=== PATIENT | male | born 1985 | race Two or more races ===

== ENCOUNTER 2017-03-04 12:23 | Inpatient (IN) | payer OTHER ==
[2017-03-04 12:32] VITALS: BMI 26.6
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
[2017-03-04 13:23] LABS: BASOPHILS # (AUTO) 0.1 X10^3/uL (0.0-0.1); BASOPHILS % (AUTO) 0.5 % (0.2-1.0); EOSINOPHILS # (AUTO) 0.3 x10^3/uL (0.0-0.2); EOSINOPHILS % (AUTO) 1.5 % (0.9-2.9); HEMATOCRIT 45.7 % (42.0-54.0); HEMOGLOBIN 15.5 g/dL (13.5-18.0); LYMPHOCYTES # (AUTO) 1.1 X10^3/uL (1.3-2.9); LYMPHOCYTES % (AUTO) 6.6 % (21.0-51.0); MEAN CORPUSCULAR HEMOGLOBIN 27.6 pg (27.0-34.0); MEAN CORPUSCULAR VOLUME 81.3 fL (80.0-100.0); MEAN PLATELET VOLUME 8.7 fL (7.4-11.0); MONOCYTES # (AUTO) 1.2 x10^3/uL (0.3-0.8); MONOCYTES % (AUTO) 7.3 % (0.0-13.0); NEUTROPHILS # (AUTO) 14.3 x10^3/uL (2.2-4.8); NEUTROPHILS % (AUTO) 84.1 % (42.0-75.0); PLATELET COUNT 201 X10^3/uL (150.0-450.0); RED BLOOD COUNT 5.62 X10^6/uL (4.7-6.0); WHITE BLOOD COUNT 17.1 X10^3/uL (3.6-10.0)
--- NOTE | 2017-03-04 13:41 | RAD ---
HISTORY: Pain trauma, infection. Study: Two views of the left knee. (Labeled as right by the tech, but history says left knee) Comparison: None. Findings: No evidence for acute cortical disruption or dislocation. Mild patellofemoral spurring. Bipartite l ateral patella. No significant effusion. IMPRESSION: No acute osseous abnormality. Reported By:
[2017-03-04] MEDS ORDERED: TORADOL 30 MG VIAL ONE (14:40)
[2017-03-04] MEDS ORDERED: TORADOL 15 MG VIAL IVP ONE (14:59)
[2017-03-04] MEDS ORDERED: VANCOMYCIN 1 GM PREMIX (ADDVANTAGE) 250 ML IV SCH ×2 (15:00→21:00)
[2017-03-04] MEDS ORDERED: VANCOMYCIN 1 GM PREMIX (ADDVANTAGE) 250 ML IV ONE (15:08)
[2017-03-04] MEDS ORDERED: MOTRIN TAB 600 MG PO PRN (15:11)
[2017-03-04] MEDS ORDERED: PHENERGAN TAB 25 MG PO PRN (15:11)
[2017-03-04] MEDS ORDERED: SOLU-Medrol 125 MG VIAL ONE (15:49)
[2017-03-04] MEDS ORDERED: BENADRYL INJ 50 MG VIAL ONE (15:49)
[2017-03-04] MEDS ORDERED: SOLU-Medrol 125 MG VIAL IVP ONE (15:58)
[2017-03-04] MEDS ORDERED: BENADRYL INJ 50 MG VIAL IVP ONE (15:58)
[2017-03-04] MEDS: NS 1000 ML 1,000 ML IV SCH ×2 (15:59→18:40)
[2017-03-05] MEDS: NS 1000 ML 1,000 ML IV SCH ×4 (01:00→22:24)
[2017-03-05] MEDS: TORADOL 30 MG VIAL IVP PRN ×2 (02:08→21:00)
[2017-03-05 05:29] LABS: BASOPHILS % (AUTO) 0 % (0.2-1.0); HEMATOCRIT 38.3 % (42.0-54.0); HEMOGLOBIN 13.1 g/dL (13.5-18.0); LYMPHOCYTES # (AUTO) 0.7 X10^3/uL (1.3-2.9); LYMPHOCYTES % (AUTO) 3.3 % (21.0-51.0); MEAN CORPUSCULAR HEMOGLOBIN 27.3 pg (27.0-34.0); MEAN CORPUSCULAR HGB CONC 34.1 g/dL (33.0-35.0); MEAN CORPUSCULAR VOLUME 80.1 fL (80.0-100.0); MEAN PLATELET VOLUME 9.1 fL (7.4-11.0); MONOCYTES # (AUTO) 0.6 x10^3/uL (0.3-0.8); MONOCYTES % (AUTO) 2.8 % (0.0-13.0); NEUTROPHILS # (AUTO) 18.9 x10^3/uL (2.2-4.8); NEUTROPHILS % (AUTO) 93.9 % (42.0-75.0); PLATELET COUNT 204 X10^3/uL (150.0-450.0); RED BLOOD COUNT 4.78 X10^6/uL (4.7-6.0); RED CELL DISTRIBUTION WIDTH 13.9 % (11.6-16.5)
[2017-03-05 05:31] LABS: WHITE BLOOD COUNT 20.1 X10^3/uL (3.6-10.0)
[2017-03-05 05:33] LABS: ALANINE AMINOTRANSFERASE 101 Units/L (12-78); ALKALINE PHOSPHATASE 154 Units/L (46-116); ASPARTATE AMINO TRANSFERASE 57 Units/L (15-37); BLOOD UREA NITROGEN 17 mg/dL (7-18); CALCIUM 8.6 mg/dL (8.5-10.1); CARBON DIOXIDE 24.2 mmol/L (21-32); CHLORIDE 105 mmol/L (98-107); COR CA(FOR HYPOALB) 9.4 mg/dL (8.5-10.1); COR NA(FOR HYPERGLY) 142 mmol/L (136-145); CREATININE 1.12 mg/dL (0.70-1.30); GLUCOSE 205 mg/dL (65-99); SODIUM 139 mmol/L (136-145); TOTAL PROTEIN 7.5 g/dL (6.4-8.2); eGFR BLACK RACES > 60 (>60); eGFR NON BLACK RACES > 60 (>60)
[2017-03-05 06:10] LABS: BAND NEUTROPHILS % 13 % (0-10); PLATELET MORPHOLOGY COMMENT NORMAL (NORMAL)
[2017-03-05] MEDS: TEFLARO 600 MG in NS 50 ML IV + SPIKE MINIBAG* 50 ML IV SCH ×2 (09:13→20:58)
[2017-03-05] MEDS: NORCO 5/325 MG TAB PO PRN (12:50)
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
--- NOTE | 2017-03-05 13:37 | PCM.PROG ---
Progress Note - Progress Note for Day of Date: 03/05/17 - Subjective Subjective: LEFT KNEE REDNESS, PAIN AND STIFFNESS. ADD BACTRIM PO, PT ON TEFLERO. CT KNEE JOINT - Past Medical Family Social History Past Med/Fam/Surg Hx: No changes since H&P Allergies: Allergies vancomycin Allergy (Verified 03/04/17 16:06) WHELPS TO FACE , REDNESS TO NECK AND FACE.. - Review of Systems ROS: No change since H&P - Vital Signs and I&O's Vital Signs: Temperature 98.2 F Pulse Rate [Left Brachial] 83 Respiratory Rate 20 Blood Pressure [Right Arm] 108/60 Blood Pressure [Left Arm] 116/59 O2 Sat by Pulse Oximetry 98 Intake and Output: Intake & Output 03/03/17 03/04/17 03/05/17 03/06/17 11:59 11:59 11:59 11:59 Intake Total 1140 Balance 1140 - Physical Exam Oriented: Normal Eyes: Normal Ear: Normal Nose: Normal Throat: Normal Cardiovascular: Normal : Normal Auscultation: Bowel Sounds: Normal Tenderness: Normal Skin: Red, Tender, Hot Musculoskeletal: Knee (LEFT KNEE, INCREASED REDNESS, FEVERED AND TENDERNESS) Mood Description: Calm Speech Pattern: Clear, Appropriate - Laboratory and Diagnostics Result Diagrams: 03/05/17 04:20 03/05/17 04:20 Labs: Laboratory WBC 20.1 X10^3/uL (3.6-10.0) H* 03/05/17 04:20 RBC 4.78 X10^6/uL (4.7-6.0) 03/05/17 04:20 Hgb 13.1 g/dL (13.5-18.0) L 03/05/17 04:20 Hct 38.3 % (42.0-54.0) L 03/05/17 04:20 MCV 80.1 fL (80.0-100.0) 03/05/17 04:20 MCH 27.3 pg (27.0-34.0) 03/05/17 04:20 MCHC 34.1 g/dL (33.0-35.0) 03/05/17 04:20 RDW 13.9 % (11.6-16.5) 03/05/17 04:20 Plt Count 204 X10^3/uL (150.0-450.0) 03/05/17 04:20 Plt Count Comment Adequate (ADEQUATE) 03/05/17 04:20 MPV 9.1 fL (7.4-11.0) 03/05/17 04:20 Neut % 93.9 % (42.0-75.0) H 03/05/17 04:20 Lymph % 3.3 % (21.0-51.0) L 03/05/17 04:20 [place] % 2.8 % (0.0-13.0) 03/05/17 04:20 Eos % 0.0 % (0.9-2.9) L 03/05/17 04:20 Baso % 0 % (0.2-1.0) L 03/05/17 04:20 Neut # 18.9 x10^3/uL (2.2-4.8) H 03/05/17 04:20 Lymph # 0.7 X10^3/uL (1.3-2.9) L 03/05/17 04:20 [place] # 0.6 x10^3/uL (0.3-0.8) 03/05/17 04:20 Eos # 0.0 x10^3/uL (0.0-0.2) 03/05/17 04:20 Baso # 0.0 X10^3/uL (0.0-0.1) 03/05/17 04:20 Absolute Nucleated RBC 0.0 /100WBC 03/05/17 04:20 Total Counted 100 03/05/17 04:20 Neutrophils % (Manual) 82 % (39-76) H 03/05/17 04:20 Band Neutrophils % 13 % (0-10) H 03/05/17 04:20 Lymphocytes % (Manual) 3 % (13-43) L 03/05/17 04:20 Monocytes % (Manual) 2 % (4-9) L 03/05/17 04:20 Plt Morphology Comment Normal (NORMAL) 03/05/17 04:20 RBC Morphology Normal (NORMAL) 03/05/17 04:20 Sodium 139 mmol/L (136-145) 03/05/17 04:20 Corrected Sodium 142 mmol/L (136-145) 03/05/17 04:20 Potassium 3.9 mmol/L (3.5-5.1) 03/05/17 04:20 Chloride 105 mmol/L (98-107) 03/05/17 04:20 Carbon Dioxide 24.2 mmol/L (21-32) 03/05/17 04:20 BUN 17 mg/dL (7-18) 03/05/17 04:20 Creatinine 1.12 mg/dL (0.70-1.30) 03/05/17 04:20 Est GFR (MDRD) Af Amer > 60 (>60) 03/05/17 04:20 Est GFR (MDRD) Non-Af > 60 (>60) 03/05/17 04:20 Glucose 205 mg/dL (65-99) H 03/05/17 04:20 Calcium 8.6 mg/dL (8.5-10.1) 03/05/17 04:20 Corrected Calcium 9.4 mg/dL (8.5-10.1) 03/05/17 04:20 Total Bilirubin 0.40 mg/dL (0.2-1.0) 03/05/17 04:20 AST 57 Units/L (15-37) H 03/05/17 04:20 ALT 101 Units/L (12-78) H 03/05/17 04:20 Alkaline Phosphatase 154 Units/L (46-116) H 03/05/17 04:20 C-Reactive Protein 236.80 mg/L (0-3.0) H 03/04/17 13:10 Total Protein 7.5 g/dL (6.4-8.2) 03/05/17 04:20 Albumin 3.0 g/dL (3.4-5.0) L 03/05/17 04:20 Globulin 4.5 g/dL (2.5-4.5) 03/05/17 04:20 Albumin/Globulin Ratio 0.7 Ratio (1.1-2.1) L 03/05/17 04:20 Non-DOT Drug Screen Collected 03/04/17 17:13 - Plan (1) Abrasion, left knee, initial encounter Status: Acute Qualifiers: Encounter type: E Plan: ADD BACTRIM PO, PT ON TEFLERO. CT KNEE JOINT (2) Effusion, left knee Status: Acute (3) Cellulitis of left lower extremity without foot Status: Acute
[2017-03-05] MEDS: BACTRIM DS TAB PO SCH ×2 (14:40→21:00)
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
[2017-03-06 05:21] LABS: ALANINE AMINOTRANSFERASE 112 Units/L (12-78); ALBUMIN 2.6 g/dL (3.4-5.0); ALKALINE PHOSPHATASE 135 Units/L (46-116); ASPARTATE AMINO TRANSFERASE 49 Units/L (15-37); BLOOD UREA NITROGEN 11 mg/dL (7-18); CALCIUM 8.3 mg/dL (8.5-10.1); CARBON DIOXIDE 24.1 mmol/L (21-32); CHLORIDE 107 mmol/L (98-107); COR CA(FOR HYPOALB) 9.4 mg/dL (8.5-10.1); CREATININE 0.96 mg/dL (0.70-1.30); GLUCOSE 104 mg/dL (65-99); SODIUM 141 mmol/L (136-145); TOTAL PROTEIN 6.9 g/dL (6.4-8.2); eGFR BLACK RACES > 60 (>60); eGFR NON BLACK RACES > 60 (>60)
[2017-03-06] MEDS: NORCO 5/325 MG TAB PO PRN ×2 (05:32→10:52)
[2017-03-06 05:41] LABS: BASOPHILS % (AUTO) 0.1 % (0.2-1.0); EOSINOPHILS # (AUTO) 0.2 x10^3/uL (0.0-0.2); EOSINOPHILS % (AUTO) 0.8 % (0.9-2.9); HEMATOCRIT 38.4 % (42.0-54.0); HEMOGLOBIN 12.9 g/dL (13.5-18.0); LYMPHOCYTES # (AUTO) 1.6 X10^3/uL (1.3-2.9); LYMPHOCYTES % (AUTO) 8.2 % (21.0-51.0); MEAN CORPUSCULAR HEMOGLOBIN 27.3 pg (27.0-34.0); MEAN CORPUSCULAR HGB CONC 33.5 g/dL (33.0-35.0); MEAN CORPUSCULAR VOLUME 81.5 fL (80.0-100.0); MEAN PLATELET VOLUME 8.9 fL (7.4-11.0); MONOCYTES # (AUTO) 1.3 x10^3/uL (0.3-0.8); MONOCYTES % (AUTO) 6.9 % (0.0-13.0); NEUTROPHILS # (AUTO) 15.8 x10^3/uL (2.2-4.8); PLATELET COUNT 214 X10^3/uL (150.0-450.0); RED BLOOD COUNT 4.71 X10^6/uL (4.7-6.0); RED CELL DISTRIBUTION WIDTH 14.5 % (11.6-16.5); WHITE BLOOD COUNT 18.8 X10^3/uL (3.6-10.0)
[2017-03-06] MEDS: TEFLARO 600 MG in NS 50 ML IV + SPIKE MINIBAG* 50 ML IV SCH ×2 (09:25→20:33)
[2017-03-06] MEDS: BACTRIM DS TAB PO SCH ×2 (09:26→20:33)
[2017-03-06] MEDS: NS 1000 ML 1,000 ML IV SCH ×3 (09:36→23:21)
--- NOTE | 2017-03-06 13:28 | MRI ---
Left knee MRI without contrast. 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 Marrow signal otherwise appears normal. No acute fracture or mal alignment is identified. Specifically, no marrow or periosteal edema of the patella is appreciated. Again seen is marked prepatellar soft tissue swelling with mild associated thickening of the overlyi ng skin. Moderate circumferential subcutaneous edema about the knee is also present. No discrete, dr ainable fluid collection is identified. The articular cartilage of the femorotibial and patellofemoral compartments appears well maintained without significant chondromalacia or full-thickness cartilage defect. A small joint effusion is pre sent. No definite loose intra-articular bodies are identified. No Bakers cyst is seen. The menisci, cruciate ligaments, superficial MCL, major lateral stabilizers of the knee and extensor mechanism appear intact. The myotendinous structures about the knee and neurovascular bundle are un remarkable. Impression: Stable marked prepatellar soft tissue swelling, again likely reflecting contusion given patient hist ory of recent trauma. Moderate circumferential subcutaneous edema about the knee, nonspecific. Superimposed infection, suc h as cellulitis is difficult to exclude and clinical correlation is again advised. Otherwise, no MR evidence of acute fracture or internal derangement The Reported By:
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
--- NOTE | 2017-03-06 18:46 | PCM.PROG ---
Progress Note - Progress Note for Day of Date: 03/06/17 - Subjective Subjective: PATIENT IS A 32 MALE WHO WAS ADMITTED 3 DAYS AGO WITH CELLULITIS TO THEleft knee. PATIENT HAS BEEN ON IV TEFLERO FOR CELLULITIS, WHITE BLOOD COUNT IMPROVED TO 18.8 THIS A.M. crp IMPROVED TO 193.3. pATIENT CONTINUES WITH PAIN AND SWELLING TO THE LEFT AND A, IMPAIRED GAIT AND WEIGHTBEARING. pAIN MEDICATION HAS BEEN CONTROLLING PAIN PER PATIENT. wE'LL CONSULT dR. [employer], CULTURE SENSITIVITY ON CHART, mrsa SENSITIVE TO bACTRIM DISCUSSED POSSIBLE DISCHARGE ON friday IF PATIENT CONTINUES TO IMPROVE - Past Medical Family Social History Past Med/Fam/Surg Hx: No changes since H&P Allergies: Allergies vancomycin Allergy (Verified 03/04/17 16:06) WHELPS TO FACE , REDNESS TO NECK AND FACE.. - Review of Systems ROS: No change since H&P - Vital Signs and I&O's Vital Signs: Temperature 98.7 F Pulse Rate [Right Brachial] 86 Pulse Rate [Left Brachial] 83 Respiratory Rate 20 Blood Pressure [Right Arm] 127/70 Blood Pressure [Left Arm] 123/79 O2 Sat by Pulse Oximetry 97 Intake and Output: Intake & Output 03/04/17 03/05/17 03/06/17 03/07/17 11:59 11:59 11:59 11:59 Intake Total 1140 1338 840 Balance 1140 1338 840 - Physical Exam Oriented: Normal Eyes: Normal Ear: Normal Nose: Normal Throat: Normal Respiratory: Normal Cardiovascular: Normal : Normal Auscultation: Bowel Sounds: Normal Tenderness: Normal Skin: Red, Tender, Hot Musculoskeletal: Left, Knee, Swelling, Tender Mood Description: Calm Speech Pattern: Clear, Appropriate - Laboratory and Diagnostics Result Diagrams: 03/06/17 04:25 03/06/17 04:25 Labs: Laboratory WBC 18.8 X10^3/uL (3.6-10.0) H 03/06/17 04:25 RBC 4.71 X10^6/uL (4.7-6.0) 03/06/17 04:25 Hgb 12.9 g/dL (13.5-18.0) L 03/06/17 04:25 Hct 38.4 % (42.0-54.0) L 03/06/17 04:25 MCV 81.5 fL (80.0-100.0) 03/06/17 04:25 MCH 27.3 pg (27.0-34.0) 03/06/17 04:25 MCHC 33.5 g/dL (33.0-35.0) 03/06/17 04:25 RDW 14.5 % (11.6-16.5) 03/06/17 04:25 Plt Count 214 X10^3/uL (150.0-450.0) 03/06/17 04:25 Plt Count Comment Adequate (ADEQUATE) 03/05/17 04:20 MPV 8.9 fL (7.4-11.0) 03/06/17 04:25 Neut % 84.0 % (42.0-75.0) H 03/06/17 04:25 Lymph % 8.2 % (21.0-51.0) L 03/06/17 04:25 [place] % 6.9 % (0.0-13.0) 03/06/17 04:25 Eos % 0.8 % (0.9-2.9) L 03/06/17 04:25 Baso % 0.1 % (0.2-1.0) L 03/06/17 04:25 Neut # 15.8 x10^3/uL (2.2-4.8) H 03/06/17 04:25 Lymph # 1.6 X10^3/uL (1.3-2.9) 03/06/17 04:25 [place] # 1.3 x10^3/uL (0.3-0.8) H 03/06/17 04:25 Eos # 0.2 x10^3/uL (0.0-0.2) 03/06/17 04:25 Baso # 0.0 X10^3/uL (0.0-0.1) 03/06/17 04:25 Absolute Nucleated RBC 0.0 /100WBC 03/06/17 04:25 Total Counted 100 03/05/17 04:20 Neutrophils % (Manual) 82 % (39-76) H 03/05/17 04:20 Band Neutrophils % 13 % (0-10) H 03/05/17 04:20 Lymphocytes % (Manual) 3 % (13-43) L 03/05/17 04:20 Monocytes % (Manual) 2 % (4-9) L 03/05/17 04:20 Plt Morphology Comment Normal (NORMAL) 03/05/17 04:20 RBC Morphology Normal (NORMAL) 03/05/17 04:20 Sodium 141 mmol/L (136-145) 03/06/17 04:25 Corrected Sodium TNP 03/06/17 04:25 Potassium 3.9 mmol/L (3.5-5.1) 03/06/17 04:25 Chloride 107 mmol/L (98-107) 03/06/17 04:25 Carbon Dioxide 24.1 mmol/L (21-32) 03/06/17 04:25 BUN 11 mg/dL (7-18) 03/06/17 04:25 Creatinine 0.96 mg/dL (0.70-1.30) 03/06/17 04:25 Est GFR (MDRD) Af Amer > 60 (>60) 03/06/17 04:25 Est GFR (MDRD) Non-Af > 60 (>60) 03/06/17 04:25 Glucose 104 mg/dL (65-99) H 03/06/17 04:25 Calcium 8.3 mg/dL (8.5-10.1) L 03/06/17 04:25 Corrected Calcium 9.4 mg/dL (8.5-10.1) 03/06/17 04:25 Total Bilirubin 0.20 mg/dL (0.2-1.0) 03/06/17 04:25 AST 49 Units/L (15-37) H 03/06/17 04:25 ALT 112 Units/L (12-78) H 03/06/17 04:25 Alkaline Phosphatase 135 Units/L (46-116) H 03/06/17 04:25 C-Reactive Protein 103.30 mg/L (0-3.0) H 03/06/17 04:25 Total Protein 6.9 g/dL (6.4-8.2) 03/06/17 04:25 Albumin 2.6 g/dL (3.4-5.0) L 03/06/17 04:25 Globulin 4.3 g/dL (2.5-4.5) 03/06/17 04:25 Albumin/Globulin Ratio 0.6 Ratio (1.1-2.1) L 03/06/17 04:25 Non-DOT Drug Screen Collected 03/04/17 17:13 - Plan (1) Cellulitis of left lower extremity without foot Status: Acute Plan: wILL REPEAT A.M. cbc, cmp, crp. WE'LL CONTINUE iv ANTIBIOTICS, BY MOUTH bACTRIM. wOUND CARE AND PAIN CONTROL (2) Abrasion, left knee, initial encounter Status: Acute Qualifiers: Encounter type: E Plan: BACTRIM PO, PT ON TEFLERO. MRI LEFT KNEE PER ORTHO (3) Effusion, left knee Status: Acute
[2017-03-06] MEDS: TORADOL 30 MG VIAL IVP PRN (20:33)
[2017-03-07] MEDS: NORCO 5/325 MG TAB PO PRN ×2 (05:31→22:25)
[2017-03-07 06:19] LABS: BASOPHILS # (AUTO) 0.1 X10^3/uL (0.0-0.1); BASOPHILS % (AUTO) 0.4 % (0.2-1.0); EOSINOPHILS # (AUTO) 0.3 x10^3/uL (0.0-0.2); EOSINOPHILS % (AUTO) 2.6 % (0.9-2.9); HEMATOCRIT 40.3 % (42.0-54.0); HEMOGLOBIN 13.8 g/dL (13.5-18.0); LYMPHOCYTES # (AUTO) 1.8 X10^3/uL (1.3-2.9); LYMPHOCYTES % (AUTO) 13.4 % (21.0-51.0); MEAN CORPUSCULAR HEMOGLOBIN 27.4 pg (27.0-34.0); MEAN CORPUSCULAR HGB CONC 34.2 g/dL (33.0-35.0); MEAN CORPUSCULAR VOLUME 80.1 fL (80.0-100.0); MEAN PLATELET VOLUME 8.9 fL (7.4-11.0); MONOCYTES # (AUTO) 1.4 x10^3/uL (0.3-0.8); MONOCYTES % (AUTO) 10.4 % (0.0-13.0); NEUTROPHILS # (AUTO) 9.6 x10^3/uL (2.2-4.8); NEUTROPHILS % (AUTO) 73.2 % (42.0-75.0); PLATELET COUNT 257 X10^3/uL (150.0-450.0); RED BLOOD COUNT 5.03 X10^6/uL (4.7-6.0); RED CELL DISTRIBUTION WIDTH 14.5 % (11.6-16.5); WHITE BLOOD COUNT 13.1 X10^3/uL (3.6-10.0)
[2017-03-07 06:29] LABS: ALANINE AMINOTRANSFERASE 184 Units/L (12-78); ALBUMIN 2.7 g/dL (3.4-5.0); ALKALINE PHOSPHATASE 202 Units/L (46-116); ASPARTATE AMINO TRANSFERASE 78 Units/L (15-37); BLOOD UREA NITROGEN 12 mg/dL (7-18); CALCIUM 8.4 mg/dL (8.5-10.1); CARBON DIOXIDE 25.7 mmol/L (21-32); CHLORIDE 102 mmol/L (98-107); COR CA(FOR HYPOALB) 9.4 mg/dL (8.5-10.1); CREATININE 0.99 mg/dL (0.70-1.30); GLUCOSE 98 mg/dL (65-99); SODIUM 137 mmol/L (136-145); TOTAL PROTEIN 7.2 g/dL (6.4-8.2); eGFR BLACK RACES > 60 (>60); eGFR NON BLACK RACES > 60 (>60)
[2017-03-07] MEDS: TEFLARO 600 MG in NS 50 ML IV + SPIKE MINIBAG* 50 ML IV SCH ×2 (09:09→22:24)
[2017-03-07] MEDS: BACTRIM DS TAB PO SCH ×2 (09:09→22:25)
[2017-03-07] MEDS: NS 1000 ML 1,000 ML IV SCH ×5 (09:14→23:02)
[2017-03-07] MEDS: CLEOCIN 300 MG IV PREMIX 300 MG/50 ML BAG IV SCH ×3 (09:14→22:25)
--- NOTE | 2017-03-07 14:34 | PCM.PROG ---
Progress Note - Progress Note for Day of Date: 03/07/17 - Subjective Subjective: PATIENT IS A 32 MALE WHO WAS ADMITTED 03/04 WITH CELLULITIS TO THEleft knee. PATIENT HAS BEEN ON IV TEFLERO and bactrim for MRSA cellulitis. Patient was evaluated by orthopedic, MRI without signs of osteomyelitis. This morning redness has extended to the thigh however patient does report pain controlled. Will add IV clindamycin and repeat a.m. labs - Past Medical Family Social History Past Med/Fam/Surg Hx: No changes since H&P Allergies: Allergies vancomycin Allergy (Verified 03/04/17 16:06) WHELPS TO FACE , REDNESS TO NECK AND FACE.. - Review of Systems ROS: No change since H&P - Vital Signs and I&O's Vital Signs: Temperature 98.0 F Pulse Rate [Right Brachial] 73 Pulse Rate [Left Brachial] 74 Respiratory Rate 20 Blood Pressure [Right Arm] 115/64 Blood Pressure [Left Arm] 111/60 O2 Sat by Pulse Oximetry 96 Intake and Output: Intake & Output 03/05/17 03/06/17 03/07/17 03/08/17 11:59 11:59 11:59 11:59 Intake Total 1140 1338 1320 480 Balance 1140 1338 1320 480 - Physical Exam Oriented: Normal Eyes: Normal Ear: Normal Nose: Normal Throat: Normal Respiratory: Normal Cardiovascular: Normal : Normal Auscultation: Bowel Sounds: Normal Tenderness: Normal Skin: Red, Tender, Hot Musculoskeletal: Left, Thigh, Knee, Swelling, Tender Mood Description: Calm Speech Pattern: Clear, Appropriate - Laboratory and Diagnostics Result Diagrams: 03/07/17 04:00 03/07/17 04:00 Labs: Laboratory WBC 13.1 X10^3/uL (3.6-10.0) H 03/07/17 04:00 RBC 5.03 X10^6/uL (4.7-6.0) 03/07/17 04:00 Hgb 13.8 g/dL (13.5-18.0) 03/07/17 04:00 Hct 40.3 % (42.0-54.0) L 03/07/17 04:00 MCV 80.1 fL (80.0-100.0) 03/07/17 04:00 MCH 27.4 pg (27.0-34.0) 03/07/17 04:00 MCHC 34.2 g/dL (33.0-35.0) 03/07/17 04:00 RDW 14.5 % (11.6-16.5) 03/07/17 04:00 Plt Count 257 X10^3/uL (150.0-450.0) 03/07/17 04:00 Plt Count Comment Adequate (ADEQUATE) 03/05/17 04:20 MPV 8.9 fL (7.4-11.0) 03/07/17 04:00 Neut % 73.2 % (42.0-75.0) 03/07/17 04:00 Lymph % 13.4 % (21.0-51.0) L 03/07/17 04:00 [place] % 10.4 % (0.0-13.0) 03/07/17 04:00 Eos % 2.6 % (0.9-2.9) 03/07/17 04:00 Baso % 0.4 % (0.2-1.0) 03/07/17 04:00 Neut # 9.6 x10^3/uL (2.2-4.8) H 03/07/17 04:00 Lymph # 1.8 X10^3/uL (1.3-2.9) 03/07/17 04:00 [place] # 1.4 x10^3/uL (0.3-0.8) H 03/07/17 04:00 Eos # 0.3 x10^3/uL (0.0-0.2) H 03/07/17 04:00 Baso # 0.1 X10^3/uL (0.0-0.1) 03/07/17 04:00 Absolute Nucleated RBC 0.1 /100WBC 03/07/17 04:00 Total Counted 100 03/05/17 04:20 Neutrophils % (Manual) 82 % (39-76) H 03/05/17 04:20 Band Neutrophils % 13 % (0-10) H 03/05/17 04:20 Lymphocytes % (Manual) 3 % (13-43) L 03/05/17 04:20 Monocytes % (Manual) 2 % (4-9) L 03/05/17 04:20 Plt Morphology Comment Normal (NORMAL) 03/05/17 04:20 RBC Morphology Normal (NORMAL) 03/05/17 04:20 Sodium 137 mmol/L (136-145) 03/07/17 04:00 Corrected Sodium TNP 03/07/17 04:00 Potassium 3.8 mmol/L (3.5-5.1) 03/07/17 04:00 Chloride 102 mmol/L (98-107) 03/07/17 04:00 Carbon Dioxide 25.7 mmol/L (21-32) 03/07/17 04:00 BUN 12 mg/dL (7-18) 03/07/17 04:00 Creatinine 0.99 mg/dL (0.70-1.30) 03/07/17 04:00 Est GFR (MDRD) Af Amer > 60 (>60) 03/07/17 04:00 Est GFR (MDRD) Non-Af > 60 (>60) 03/07/17 04:00 Glucose 98 mg/dL (65-99) 03/07/17 04:00 Calcium 8.4 mg/dL (8.5-10.1) L 03/07/17 04:00 Corrected Calcium 9.4 mg/dL (8.5-10.1) 03/07/17 04:00 Total Bilirubin 0.30 mg/dL (0.2-1.0) 03/07/17 04:00 AST 78 Units/L (15-37) H 03/07/17 04:00 ALT 184 Units/L (12-78) H 03/07/17 04:00 Alkaline Phosphatase 202 Units/L (46-116) H 03/07/17 04:00 C-Reactive Protein 89.90 mg/L (0-3.0) H 03/07/17 04:00 C-React Prot High Sens Cancelled 03/07/17 04:00 Total Protein 7.2 g/dL (6.4-8.2) 03/07/17 04:00 Albumin 2.7 g/dL (3.4-5.0) L 03/07/17 04:00 Globulin 4.5 g/dL (2.5-4.5) 03/07/17 04:00 Albumin/Globulin Ratio 0.6 Ratio (1.1-2.1) L 03/07/17 04:00 Non-DOT Drug Screen Collected 03/04/17 17:13 - Plan (1) Cellulitis of left lower extremity without foot Status: Acute Plan: wILL REPEAT A.M. cbc, cmp, crp. WE'LL CONTINUE iv ANTIBIOTICS, BY MOUTH bACTRIM. wOUND CARE AND PAIN CONTROL (2) Abrasion, left knee, initial encounter Status: Acute Qualifiers: Encounter type: E Plan: BACTRIM PO, PT ON TEFLERO, ADD CLINDAMYCIN iv TODAY AND REPEAT A.M. LABS. MRI LEFT KNEE PER ORTHO WITHOUT FINDINGS FOR OSTEOMYELITIS (3) Effusion, left knee Status: Acute
[2017-03-07] MEDS: TORADOL 30 MG VIAL IVP PRN (15:22)
[2017-03-08 05:32] LABS: BASOPHILS # (AUTO) 0.1 X10^3/uL (0.0-0.1); BASOPHILS % (AUTO) 0.5 % (0.2-1.0); EOSINOPHILS # (AUTO) 0.6 x10^3/uL (0.0-0.2); EOSINOPHILS % (AUTO) 4.8 % (0.9-2.9); HEMATOCRIT 41.1 % (42.0-54.0); HEMOGLOBIN 13.9 g/dL (13.5-18.0); LYMPHOCYTES % (AUTO) 17.5 % (21.0-51.0); MEAN CORPUSCULAR HEMOGLOBIN 27.2 pg (27.0-34.0); MEAN CORPUSCULAR HGB CONC 33.9 g/dL (33.0-35.0); MEAN CORPUSCULAR VOLUME 80.5 fL (80.0-100.0); MEAN PLATELET VOLUME 8.4 fL (7.4-11.0); MONOCYTES % (AUTO) 8.7 % (0.0-13.0); NEUTROPHILS # (AUTO) 7.9 x10^3/uL (2.2-4.8); NEUTROPHILS % (AUTO) 68.5 % (42.0-75.0); PLATELET COUNT 283 X10^3/uL (150.0-450.0); RED BLOOD COUNT 5.11 X10^6/uL (4.7-6.0); RED CELL DISTRIBUTION WIDTH 14.2 % (11.6-16.5); WHITE BLOOD COUNT 11.6 X10^3/uL (3.6-10.0)
[2017-03-08 05:33] LABS: ALANINE AMINOTRANSFERASE 175 Units/L (12-78); ALBUMIN 2.9 g/dL (3.4-5.0); ALKALINE PHOSPHATASE 244 Units/L (46-116); ASPARTATE AMINO TRANSFERASE 58 Units/L (15-37); BLOOD UREA NITROGEN 11 mg/dL (7-18); CALCIUM 9.1 mg/dL (8.5-10.1); CARBON DIOXIDE 29.1 mmol/L (21-32); CHLORIDE 101 mmol/L (98-107); CREATININE 1.14 mg/dL (0.70-1.30); GLUCOSE 95 mg/dL (65-99); SODIUM 137 mmol/L (136-145); TOTAL PROTEIN 7.9 g/dL (6.4-8.2); eGFR BLACK RACES > 60 (>60); eGFR NON BLACK RACES > 60 (>60)
[2017-03-08] MEDS: CLEOCIN 300 MG IV PREMIX 300 MG/50 ML BAG IV SCH ×3 (06:14→22:05)
[2017-03-08] MEDS: TORADOL 30 MG VIAL IVP PRN (06:15)
[2017-03-08] MEDS: NS 1000 ML 1,000 ML IV SCH ×3 (07:42→18:46)
[2017-03-08] MEDS: TEFLARO 600 MG in NS 50 ML IV + SPIKE MINIBAG* 50 ML IV SCH ×2 (09:01→21:20)
[2017-03-08] MEDS: BACTRIM DS TAB PO SCH ×2 (09:02→21:18)
[2017-03-08] MEDS: NORCO 5/325 MG TAB PO PRN (22:11)
[2017-03-09] MEDS: NS 1000 ML 1,000 ML IV SCH ×3 (01:50→20:33)
[2017-03-09] MEDS: CLEOCIN 300 MG IV PREMIX 300 MG/50 ML BAG IV SCH ×2 (05:39→13:14)
[2017-03-09 06:14] LABS: BASOPHILS # (AUTO) 0.1 X10^3/uL (0.0-0.1); BASOPHILS % (AUTO) 0.5 % (0.2-1.0); EOSINOPHILS # (AUTO) 0.7 x10^3/uL (0.0-0.2); EOSINOPHILS % (AUTO) 6.6 % (0.9-2.9); HEMATOCRIT 41.5 % (42.0-54.0); HEMOGLOBIN 14.1 g/dL (13.5-18.0); LYMPHOCYTES % (AUTO) 19.2 % (21.0-51.0); MEAN CORPUSCULAR HEMOGLOBIN 27.5 pg (27.0-34.0); MEAN CORPUSCULAR VOLUME 80.8 fL (80.0-100.0); MONOCYTES # (AUTO) 0.9 x10^3/uL (0.3-0.8); MONOCYTES % (AUTO) 8.2 % (0.0-13.0); NEUTROPHILS # (AUTO) 6.9 x10^3/uL (2.2-4.8); NEUTROPHILS % (AUTO) 65.5 % (42.0-75.0); PLATELET COUNT 302 X10^3/uL (150.0-450.0); RED BLOOD COUNT 5.14 X10^6/uL (4.7-6.0); RED CELL DISTRIBUTION WIDTH 14.4 % (11.6-16.5); WHITE BLOOD COUNT 10.6 X10^3/uL (3.6-10.0)
[2017-03-09 06:32] LABS: ALANINE AMINOTRANSFERASE 164 Units/L (12-78); ALBUMIN 2.7 g/dL (3.4-5.0); ALKALINE PHOSPHATASE 274 Units/L (46-116); ASPARTATE AMINO TRANSFERASE 56 Units/L (15-37); BLOOD UREA NITROGEN 15 mg/dL (7-18); CALCIUM 8.4 mg/dL (8.5-10.1); CARBON DIOXIDE 28.3 mmol/L (21-32); CHLORIDE 103 mmol/L (98-107); COR CA(FOR HYPOALB) 9.4 mg/dL (8.5-10.1); CREATININE 1.26 mg/dL (0.70-1.30); GLUCOSE 92 mg/dL (65-99); SODIUM 139 mmol/L (136-145); TOTAL PROTEIN 7.5 g/dL (6.4-8.2); eGFR BLACK RACES > 60 (>60); eGFR NON BLACK RACES > 60 (>60)
[2017-03-09] MEDS: BACTRIM DS TAB PO SCH (08:10)
[2017-03-09] MEDS: TEFLARO 600 MG in NS 50 ML IV + SPIKE MINIBAG* 50 ML IV SCH ×2 (08:10→21:59)
[2017-03-09] MEDS ORDERED: LEVAQUIN PREMIX IV 500 MG 500 MG/100 ML BAG IV SCH (19:00)
[2017-03-09] MEDS: NORCO 5/325 MG TAB PO PRN (22:02)
[2017-03-10 05:41] LABS: BASOPHILS # (AUTO) 0.1 X10^3/uL (0.0-0.1); BASOPHILS % (AUTO) 0.6 % (0.2-1.0); EOSINOPHILS # (AUTO) 0.6 x10^3/uL (0.0-0.2); EOSINOPHILS % (AUTO) 5.5 % (0.9-2.9); HEMATOCRIT 42.8 % (42.0-54.0); HEMOGLOBIN 14.6 g/dL (13.5-18.0); LYMPHOCYTES # (AUTO) 2.1 X10^3/uL (1.3-2.9); LYMPHOCYTES % (AUTO) 18.9 % (21.0-51.0); MEAN CORPUSCULAR HEMOGLOBIN 27.3 pg (27.0-34.0); MEAN CORPUSCULAR HGB CONC 34.1 g/dL (33.0-35.0); MEAN CORPUSCULAR VOLUME 80.2 fL (80.0-100.0); MEAN PLATELET VOLUME 7.9 fL (7.4-11.0); MONOCYTES # (AUTO) 0.8 x10^3/uL (0.3-0.8); NEUTROPHILS # (AUTO) 7.5 x10^3/uL (2.2-4.8); PLATELET COUNT 336 X10^3/uL (150.0-450.0); RED BLOOD COUNT 5.34 X10^6/uL (4.7-6.0); RED CELL DISTRIBUTION WIDTH 14.6 % (11.6-16.5)
[2017-03-10 05:43] LABS: ALANINE AMINOTRANSFERASE 133 Units/L (12-78); ALBUMIN 2.9 g/dL (3.4-5.0); ALKALINE PHOSPHATASE 293 Units/L (46-116); ASPARTATE AMINO TRANSFERASE 29 Units/L (15-37); BLOOD UREA NITROGEN 17 mg/dL (7-18); CALCIUM 8.9 mg/dL (8.5-10.1); CARBON DIOXIDE 29.2 mmol/L (21-32); CHLORIDE 103 mmol/L (98-107); COR CA(FOR HYPOALB) 9.8 mg/dL (8.5-10.1); CREATININE 1.27 mg/dL (0.70-1.30); GLUCOSE 97 mg/dL (65-99); SODIUM 138 mmol/L (136-145); TOTAL PROTEIN 7.9 g/dL (6.4-8.2); eGFR BLACK RACES > 60 (>60); eGFR NON BLACK RACES > 60 (>60)
[2017-03-10] MEDS: NS 1000 ML 1,000 ML IV SCH (06:05)
[2017-03-10] MEDS: TEFLARO 600 MG in NS 50 ML IV + SPIKE MINIBAG* 50 ML IV SCH (08:44)
[2017-03-10 18:02] VITALS: BP 134/80
== END 2017-03-10 16:25 | disposition home or self-care (01) | DRG 603 ==
LOC: ER 12:40 → MED/SURG 15:20
PROVIDERS: ADMIT Internal Medicine; ATTEND Internal Medicine
DX: L03.116 Cellulitis of left lower limb (principal); S80.212A Abrasion, left knee, initial encounter; X58.XXXA Exposure to other specified factors, initial encounter; Y92.89 Other specified places as the place of occurrence of the external cause; M25.462 Effusion, left knee; B95.62 Methicillin resistant Staphylococcus aureus infection as the cause of diseases classified elsewhere
CPT/HCPCS: 36415; 73560; 73700; 73721; 80053; 80305; 85025; 86140; 87040; 87070; 87075; 87077; 87186; 87205; 96365; 96367; 96374; 96375; 99000; 99284; A4222; S0077; J0712; J1200; J1885; J1956; J2930; J3370